=== PATIENT | female | born 1965 | race African-American/Black ===

== ENCOUNTER 2020-09-11 04:20 | Day surgery (SDC) | payer OTHER ==
[2020-09-10 13:09] VITALS: BMI 29.1
[2020-09-11] MEDS ORDERED: LIDOCAINE 1%/EPI 1:100000 (50 ML MULTI DOSE VIAL) ONE (12:13)
[2020-09-11] MEDS ORDERED: BUPIVACAINE HCL 100 ML ONE (12:13)
[2020-09-11] MEDS ORDERED: BUPIVACAINE HCL 50 ML ONE (12:24)
[2020-09-11] MEDS ORDERED: PROPOFOL 20 ML ONE (12:50)
[2020-09-11] MEDS ORDERED: MIDAZOLAM HCL 2 MG/2 ML SINGLE DOSE VIAL ONE (12:51)
[2020-09-11] MEDS ORDERED: LIDOCAINE 1%/EPI 1:100000 (20 ML MULTI DOSE VIAL) IJ ONE (13:35)
[2020-09-11] MEDS ORDERED: BUPIVACAINE HCL/PF 0.5% (5MG/ML) 10 ML VIAL IJ ONE (13:36)
[2020-09-11] MEDS ORDERED: ONDANSETRON 4 MG/2 ML VIAL IVPUSH PRN (14:01)
[2020-09-11] MEDS ORDERED: oxyCODONE HCL 5 MG TABLET PO PRN (14:01)
[2020-09-11] MEDS ORDERED: LACTATED RINGERS SOLUTION 1,000 ML IV SCH (14:15)
[2020-09-11 16:52] VITALS: BP 146/74; PULSE 61; TEMP 97.5
== END 2020-09-11 16:54 | disposition home or self-care (01) ==
LOC: JASU-SURG 04:20
PROVIDERS: ATTEND Orthopaedic Surgery
PROC: 0SBC4ZZ Excision of Right Knee Joint, Percutaneous Endoscopic Approach (ICD-10-PCS; principal; 2020-09-11 14:00)
DX: S83.231A Complex tear of medial meniscus, current injury, right knee, initial encounter (principal); X58.XXXA Exposure to other specified factors, initial encounter; Y93.9 Activity, unspecified; Y92.9 Unspecified place or not applicable; Y99.9 Unspecified external cause status
CPT/HCPCS: 94760